=== PATIENT | male | born 1965 | race Caucasian/White ===

== ENCOUNTER → 2019-05-14 | Outpatient (CLI) | payer OTHER ==
[~2019-05-14] MED LIST: IBUPROFEN 400400 M1 PO; IBUPROFEN 800800 M1 PO; IBUPROFEN200 M2 PO; KEFLEX500 MG PO; NORCO 5-325 TA1 EACH PO; PERCOCET 5-3251 EACH PO; REMICADE 1100 MG/VIA IV; ZANTAC 150MG T150 M1 PO; ZANTAC150 M2 PO
== END ==
LOC: CAT 14:48
DX: Z13.6 Encounter for screening for cardiovascular disorders (principal); E78.00 Pure hypercholesterolemia, unspecified; I25.10 Atherosclerotic heart disease of native coronary artery without angina pectoris

== ENCOUNTER → 2021-01-18 | Outpatient (CLI) | payer OTHER | LOC: SJCVCIMAG 11:25 | PROVIDERS: ATTEND Internal Medicine | DX: E78.5 Hyperlipidemia, unspecified (principal); I10 Essential (primary) hypertension ==

== ENCOUNTER → 2021-01-24 | Outpatient (CLI) | payer OTHER | LOC: RAD 09:12 | PROVIDERS: ATTEND Internal Medicine | DX: R06.09 Other forms of dyspnea (principal) ==